=== PATIENT | male | born 1980 | race Caucasian/White ===

== ENCOUNTER 2021-02-09 16:09 | Emergency (ER) | payer OTHER, SELFPAY ==
[2021-02-09 16:50] VITALS: BP 135/100; PULSE 92; RESP 16; TEMP 37.1; O2SAT 97; BMI 29.5
--- NOTE | 2021-02-09 16:58 | DI.RAD.S_ITS ---
PROCEDURE: XR CHEST 2V INDICATIONS: COVID+ family/heavy chest/pain on insp TECHNIQUE: 2 views of the chest were acquired. COMPARISON: None. FINDINGS: Surgical changes and devices: None. Lungs and pleura: Lungs are clear. No pleural effusions or pneumothorax. Mediastinum: Mediastinal contours are normal. Heart size is normal. Bones and chest wall: No suspicious bony abnormalities. Soft tissues appear unremarkable. IMPRESSION: No acute cardiopulmonary abnormalities or focal airspace disease. Dictated by: Bruno Egan M.D. on 02/09/2021 at 17:50 Approved by: Bruno Egna M.D. on 02/09/2021 at 17:51
[2021-02-09 17:26] LABS: COVID19 -Nasal RAPID Negative (Negative)
--- NOTE | 2021-02-09 18:08 | ED.SOB ---
HPI - SOB/Dyspnea General Chief Complaint: Shortness of Breath/Dyspnea Stated Complaint: Sore Throat, Chest Heaviness, Spouse COVID + Time Seen by Provider: 02/09/21 18:07 History of Present Illness HPI Narrative: This is a 40-year-old male with 2 home family members his and son who both are COVID positive and began having symptoms almost a week ago. In the last couple days patient has had some heaviness in his chest, sore throat. He has been afebrile. He has not had any cough cold or congestion. He has not felt short of breath. Patient denies any nausea vomiting other GI or urinary symptoms to or in nose rash or skin infections. Patient takes a medication for moved as well as sleep. He denies any other major medical issues. Review of Systems Review of Systems ROS Unobtainable: All systems reviewed & are unremarkable except as noted in HPI and below Patient History Social History Smoking Status: Current every day smoker Smoking Status: Current every day smoker tobacco type: cigarettes Exam Narrative Exam Narrative: GEN: well nourished, well appearing male, alert and oriented x 3, patient appears to be in mild distress. HEENT: Atraumatic, pupils are equal round reactive to light, extraocular movements are intact, nares are clear, TMs are clear with no fluid, there is no conjunctival pallor. Throat is clear without any exudates, erythema, tonsillar enlargement or uvular deviation HEART: Regular rate and rhythm without murmur, clicks, rubs. LUNGS:Lungs clear to auscultation, no wheezes, rales, crackles, chest moves symmetrically ABD:bowel sounds normal, soft, non-tender, no guarding, rebound, rigidity, no masses noted, no hepatosplenomegaly MSCL: full range of motion NEURO:CN 2-12 intact, sensation normal SKIN: No rashes or skin changes. Initial Vital Signs Initial Vital Signs: Vital Signs Temperature 98.8 F 02/09/21 16:50 Pulse Rate 92 H 02/09/21 16:50 Respiratory Rate 16 02/09/21 16:50 Blood Pressure 135/100 H 02/09/21 16:50 Pulse Oximetry 97 02/09/21 16:50 Course Orders Ordered: ED Orders 02/09/21 16:54 COVID19 -Nasal swab/Pre-Proc Stat 02/09/21 16:58 XR chest 2V Stat Vital Signs Vital signs: Vital Signs - 8 hr 02/09/21 16:50 02/09/21 19:42 Temperature 98.8 F 98.0 F Pulse Rate 92 H 77 Respiratory Rate 16 16 Blood Pressure 135/100 H 123/91 H Pulse Oximetry 97 100 MDM - SOB/Dyspnea Lab Data Labs: Lab Results 02/09/21 Range/Units 16:54 SARS-CoV-2 (PCR) Negative (Negative) Imaging Data Chest x-ray: Radiologist's Impression: Chuck Dong 40 M [address] [id number] ReportSigned Patient: Chuck Dong BMR#: [id number]: 1980Acct:[id number]/Sex: 40 / MDate of Service: 02/09/21Loc: EDAccession Number: [id number] Procedure: XR chest 2V Ordering Provider: Moriah Bowen D.O. PROCEDURE: XR CHEST 2V INDICATIONS: COVID+ family/heavy chest/pain on insp TECHNIQUE: 2 views of the chest were acquired. COMPARISON: None. FINDINGS: Surgical changes and devices: None. Lungs and pleura: Lungs are clear. No pleural effusions or pneumothorax. Mediastinum: Mediastinal contours are normal. Heart size is normal. Bones and chest wall: No suspicious bony abnormalities. Soft tissues appear unremarkable. IMPRESSION: No acute cardiopulmonary abnormalities or focal airspace disease. Dictated by: Bruno Egan M.D. on 02/09/2021 at 17:50 Approved by: Bruno Egan M.D. on 02/09/2021 at 17:51 [facility] Narrative Medical decision making narrative: This is a 40-year-old male who comes with complaint of chest heaviness, sore throat feeling generally unwell with 2 COVID positive family members in the house patient is fully vaccinated since July. Patient has 2 additional children living in the house are both having symptoms currently as well. Patient tested negative today for COVID. Chest x-ray is negative. Discharge Plan Departure Patient Disposition: Home Clinical Impression: Acute upper respiratory infection Instructions: DI for COVID-19 (Suspected or Confirmed ) Activity Restrictions/Additional Instructions: Your COVID test is negative today. If you continue to have symptoms I would recommend having a repeat test in the next several days to week. If you wish you may obtain a pulse oximeter for use at home to monitor. Please return to the ER if your pulse oximeter shows an O2 saturation less than 92%. *What to do: * per recommendations from the CDC and the [facility] Department of Health * stay home except to get medical care. Restrict activities outside your home, except for getting medical care. Do not go to work, school, or public areas. Avoid using public transportation, ride sharing, or taxis. * separate yourself from other people in your home. * call ahead before visiting your doctor * Wear a face mask * Cover your coughs and sneezes * Clean your hands often * Avoid sharing household items * Clean all high-touch services every day * Monitor your symptoms and seek prompt medical attention if your illness is worsening, particularly with difficulty in breathing. Discussed continuing home isolation * for individuals with symptoms who are confirmed or suspected cases of COVID-19 and are directed to care for themselves at home, discontinue home isolation under the following conditions: 1. At least 72 hours have passed since recovery, defined as resolution of fever without the use of fever reducing medications, and improvement in respiratory symptoms (cough, shortness of breath) AND, 2. At least 7 days have passed since symptoms 1st appeared Individuals with laboratory confirmed COVID-19 who have not had any symptoms may discontinue home isolation when at least 7 days have passed since the date of their 1st COVID-19 diagnostic test and have had no subsequent illness
--- NOTE | 2021-02-09 19:40 | PC.NURSE ---
chest pressure, pain in bilateral ribs with deep breath. Fatigue. Headache. positive for COVID.
[2021-02-09 19:42] VITALS: BP 123/91; PULSE 77; RESP 16; TEMP 36.7; O2SAT 100
== END 2021-02-09 19:53 | disposition home or self-care (01) ==
PROVIDERS: Emergency Medicine; Emergency Provider Emergency Medicine
DX: J06.9 Acute upper respiratory infection, unspecified (principal); R07.9 Chest pain, unspecified; J02.9 Acute pharyngitis, unspecified; Z20.822 Contact with and (suspected) exposure to COVID-19
CPT/HCPCS: 71046; 87635; 99283; C9803